=== PATIENT | female | born 1955 | race Caucasian/White ===

== ENCOUNTER 2018-02-11 17:52 | Emergency (ER) | payer MEDICARE, MEDICAID ==
[2018-02-11 18:00] VITALS: BP 129/100
--- NOTE | 2018-02-11 19:05 | ED Physician Documentation ---
PD HPI WOUND RECHECK - Stated complaint Stated Complaint: SPIDER BITE - Chief complaint Chief Complaint: Wound - Histroy obtained from History obtained from: Patient - History of Present Illness Location: Other (R index finger wound x 1 week) Timing - onset: How many weeks ago (1) Pain level max: 4 Pain level now: 3 Associated symptoms: Redness, Swelling, Drainage (states drained pus earlier). No: Fever Similar symptoms before: Has not had sx before Recently seen: Not recently seen Review of Systems Constitutional: denies: Fever Skin: denies: Rash PD PAST MEDICAL HISTORY - Past Medical History Past Medical History: No - Present Medications Home Medications: Ambulatory Orders Medication Instructions Recorded Confirmed Clindamycin HCl [Clindamycin 300MG 300 mg PO Q6H #28 capsule 02/11/18 CAP] - Allergies Allergies/Adverse Reactions: Allergies Allergy/AdvReac Type Severity Reaction Status Date / Time amoxicillin Allergy Nausea Verified 02/11/18 18:01 ampicillin Allergy Nausea Verified 02/11/18 18:01 Sulfa (Sulfonamide Allergy Rash Verified 02/11/18 18:01 Antibiotics) zolpidem [From Ambien] Allergy Dizziness Verified 02/11/18 18:01 - Living Situation Living Arrangement: reports: At home - Social History Does the pt have substance abuse?: No - Family History Family history: reports: Non contributory PD ED PE NORMAL - Vitals Vital signs reviewed: Yes - General General: Alert and oriented X 3, No acute distress - HEENT HEENT: Moist mucous membranes - Derm Derm: Warm and dry - Extremities Extremities: Other (R index finger - 1x1cm area of erythema without drainage. No lymphangitic spread. No tenderness along the palmar aspect of the finger or hand. No fusiform swelling NVI) - Neuro Neuro: Alert and oriented X 3 Results - Vitals Vitals: Vital Signs - 24 hr 02/11/18 17:57 Temperature 36.3 C L Heart Rate 82 Respiratory 18 Rate Blood Pressure 129/100 H O2 Saturation 100 Oxygen O2 Source Room air PD MEDICAL DECISION MAKING - ED course Complexity details: considered differential, d/w patient ED course: 62-year-old female with a right index finger cellulitis. Tetanus is up-to-date. Will place on antibiotics for home and follow-up closely with her doctor. She is well-appearing, nontoxic. Afebrile. No evidence of deep space infection in the hand. Patient counseled regarding signs and symptoms for which I believe and urgent re-evaluation would be necessary. Patient with good understanding of and agreement to plan and is comfortable going home at this time This document was made in part using voice recognition software. While efforts are made to proofread this document, sound alike and grammatical errors may occur. - Sepsis Event Vital Signs: Vital Signs - 24 hr 02/11/18 17:57 Temperature 36.3 C L Heart Rate 82 Respiratory 18 Rate Blood Pressure 129/100 H O2 Saturation 100 Oxygen O2 Source Room air Departure - Departure Disposition: 01 Home, Self Care Clinical Impression: Cellulitis Qualifiers: Site of cellulitis: extremity Site of cellulitis of extremity: finger Laterality: right Qualified Code(s): L03.011 - Cellulitis of right finger Condition: Good Instructions: ED Infec Skin Cellulitis Follow-Up: your,doctor in 5 days for wound check [Other] Prescriptions: Clindamycin HCl [Clindamycin 300MG CAP] 300 mg PO Q6H #28 capsule Comments: Take all antibiotics until gone. Return if you worsen. This should improve over the next few days. Discharge Date/Time: 02/11/18 19:18
== END 2018-02-11 19:18 | disposition home or self-care (01) ==
LOC: ED 17:52
DX: L03.011 Cellulitis of right finger (principal)
CPT/HCPCS: 99283

== ENCOUNTER 2018-03-04 17:07 | Emergency (ER) | payer MEDICARE, MEDICAID ==
[2018-03-04 17:26] VITALS: BP 112/84
[2018-03-04] MEDS ORDERED: CLINDAMYCIN 150 MG CAPSULE PO STA (17:39)
--- NOTE | 2018-03-04 17:41 | ED Physician Documentation ---
History of Present Illness - Stated complaint Stated Complaint: RT FINGER INJ - Chief complaint Chief Complaint: Wound - History obtained from History obtained from: Patient - History of Present Illness Timing: How many weeks ago (several) Pain level max: 0 Pain level now: 0 Improved by: nothing Worsened by: nothing - Additonal information Additional information: Patient presents to the emergency department with continued redness of the right index finger since she was seen here several weeks ago for same. She never filled her prescription or took the antibiotics. She denies any fevers. States that it did swell and drain but is still mildly red. She states it does not hurt. Tetanus is up-to-date. She is right-handed Review of Systems Constitutional: denies: Fever, Chills Cardiac: denies: Chest pain / pressure Respiratory: denies: Cough GI: denies: Vomiting, Diarrhea Musculoskeletal: denies: Neck pain, Back pain Neurologic: denies: Headache PD PAST MEDICAL HISTORY - Past Medical History Past Medical History: No - Past Surgical History Past Surgical History: No - Present Medications Home Medications: Ambulatory Orders Medication Instructions Recorded Confirmed Clindamycin HCl [Clindamycin 300MG 300 mg PO Q6H #28 capsule 02/11/18 CAP] Clindamycin HCl [Clindamycin 300MG 300 mg PO Q6H #28 capsule 03/04/18 CAP] - Allergies Allergies/Adverse Reactions: Allergies Allergy/AdvReac Type Severity Reaction Status Date / Time amoxicillin Allergy Nausea Verified 02/11/18 18:01 ampicillin Allergy Nausea Verified 02/11/18 18:01 Sulfa (Sulfonamide Allergy Rash Verified 02/11/18 18:01 Antibiotics) zolpidem [From Ambien] Allergy Dizziness Verified 02/11/18 18:01 - Living Situation Living Arrangement: reports: At home - Social History Does the pt smoke?: No Smoking Status: Never smoker Does the pt have substance abuse?: No PD ED PE NORMAL - Vitals Vital signs reviewed: Yes - General General: Alert and oriented X 3 - HEENT HEENT: Moist mucous membranes - Neck Neck: Supple, no meningeal sign - Cardiac Cardiac: RRR, Strong equal pulses - Respiratory Respiratory: No respiratory distress, Clear bilaterally - Derm Derm: Warm and dry - Extremities Extremities: Other (mild cellulitis R index PIP joint. No abscess. No toxic tenosynovitis. No deep space infection in the hand. No lymphangitis.) - Neuro Neuro: Alert and oriented X 3 Results - Vitals Vitals: Vital Signs - 24 hr 03/04/18 17:23 Temperature 36.2 C L Heart Rate 102 H Respiratory 22 Rate Blood Pressure 112/84 H O2 Saturation 95 Oxygen O2 Source Room air PD MEDICAL DECISION MAKING - ED course Complexity details: considered differential, d/w patient ED course: Patient is a 62-year-old female with a mild cellulitis of the right index finger. Will place on clindamycin for this and have her follow-up with her doctor. Patient counseled regarding signs and symptoms for which I believe and urgent re-evaluation would be necessary. Patient with good understanding of and agreement to plan and is comfortable going home at this time This document was made in part using voice recognition software. While efforts are made to proofread this document, sound alike and grammatical errors may occur. - Sepsis Event Vital Signs: Vital Signs - 24 hr 03/04/18 17:23 Temperature 36.2 C L Heart Rate 102 H Respiratory 22 Rate Blood Pressure 112/84 H O2 Saturation 95 Oxygen O2 Source Room air Departure - Departure Disposition: 01 Home, Self Care Clinical Impression: Cellulitis Qualifiers: Site of cellulitis: extremity Site of cellulitis of extremity: upper extremity Laterality: right Qualified Code(s): L03.113 - Cellulitis of right upper limb Condition: Good Instructions: ED Infec Skin Cellulitis Follow-Up: your,doctor in 1 week [Other] Prescriptions: Clindamycin HCl [Clindamycin 300MG CAP] 300 mg PO Q6H #28 capsule Comments: Please fill the antibiotics and take them until gone. Return if you worsen. Follow-up closely with your doctor for further care. Return especially for redness swelling or drainage from the wound Discharge Date/Time: 03/04/18 17:45
== END 2018-03-04 17:45 | disposition home or self-care (01) ==
LOC: ED 17:07
DX: L03.113 Cellulitis of right upper limb (principal)
CPT/HCPCS: 99283; A9270